=== PATIENT | female | born 1960 | race Caucasian/White ===

== ENCOUNTER 2018-03-31 14:26 | Outpatient (CLI) | payer OTHER | END 2018-03-31 14:27 | disposition home or self-care (01) | LOC: BICMAMMO 14:26 | PROVIDERS: ATTEND Nurse Practitioner Family | DX: Z12.31 Encounter for screening mammogram for malignant neoplasm of breast (principal) | CPT/HCPCS: 77063; 77067 ==

== ENCOUNTER 2019-01-07 10:28 | Outpatient (CLI) | payer OTHER ==
--- NOTE | 2019-01-07 13:17 | MRI ---
MRI CERVICAL SPINE WITHOUT CONTRAST: Date: 01/07/19 INDICATION: Cervical radicular pain for last 5 years. COMPARISON: None. FINDINGS: Visualized posterior fossa and craniocervical junction appears within normal limits. The prevertebral soft tissues are normal appearing. There is reversal of normal cervical lordosis. There is very slight anterior translation of C4 on C5, which is likely degenerative. At C2-3, there is mild facet joint degenerative change, but no appreciable central canal or neural fo raminal narrowing. At C3-4, there is mild facet joint degenerative change bilaterally, but no appreciable central canal or neural foraminal narrowing. There is a small broad based disc bulge at this level. At C4-5, there is a broad based bulge with moderate to severe left and mild right facet joint degener ative change. Constellation of findings induces mild left neural foraminal narrowing and mild central canal narrowing without definite cord flattening. At C5-6, there is a broad based bulge with uncovertebral hypertrophy and facet joint degenerative ismael nge inducing moderate to severe left and moderate right neural foraminal narrowing and moderate centr al canal narrowing. At C6-7, there is a broad based bulge causing mild central canal narrowing with mild bilateral neural foraminal narrowing. At C7-T1, there is no appreciable central canal or neural foraminal narrowing. IMPRESSION: 1. Central canal narrowing at C5-6 with moderate to severe left and moderate right neural foraminal narrowing. 2. Mild central canal narrowing at C4-5 and C6-7 due to a broad based bulge. 3. There is mild left neural foraminal narrowing at C4-5. Mild bilateral neural foraminal narrowing at C6-7 due to uncovertebral hypertrophy and broad based bulge. POS: CET
== END 2019-01-07 10:29 | disposition home or self-care (01) ==
LOC: BICMRI 10:28
PROVIDERS: ATTEND Family Medicine
DX: M50.121 Cervical disc disorder at C4-C5 level with radiculopathy (principal); M48.02 Spinal stenosis, cervical region
CPT/HCPCS: 72141

== ENCOUNTER 2023-12-19 10:49 | Outpatient (CLI) | payer OTHER | END 2023-12-19 10:50 | disposition home or self-care (01) | LOC: BICULT 10:49 | PROVIDERS: ATTEND Nurse Practitioner Family | DX: N63.42 Unspecified lump in left breast, subareolar (principal) ==

== ENCOUNTER 2024-07-22 07:24 | Emergency (ER) | payer SELFPAY ==
[2024-07-22] MEDS ORDERED: Dexamethasone 20 MG/5 ML VIAL ONE (07:45)
[2024-07-22] MEDS ORDERED: Ketorolac Tromethamine 30 MG (1 mL) VIAL ONE (07:45)
== END 2024-07-22 08:43 | disposition home or self-care (01) ==
LOC: ERS 07:24
DX: M79.602 Pain in left arm (principal); E03.9 Hypothyroidism, unspecified; F17.210 Nicotine dependence, cigarettes, uncomplicated; Z79.890 Hormone replacement therapy
CPT/HCPCS: 71045; 93005; 96374; 96375; J1100; J1885

== ENCOUNTER 2025-05-26 15:41 | Emergency (ER) | payer OTHER ==
[2025-05-26 16:32] LABS: #Basophils 0.07 10x3/uL (0.0-0.2); #Eosinophils 0.10 10x3/uL (0.0-0.7); #Monocytes 0.53 10x3/uL (0.11-0.59); #Neutrophils 5.34 10x3/uL (1.40-6.50); %Basophils 0.8 % (0.0-1.0); %Eosinophils 1.2 % (0.0-10.0); %Lymphocytes 30.1 % (21.0-51.0); %Monocytes 6.1 % (0.0-10.0); %Neutrophils 61.5 % (42.0-75.0); Hematocrit 38.0 % (36.0-47.0); Hemoglobin 12.8 g/dL (12.0-16.0); Mean Corpuscular Hemoglobin 32.7 pg (27.0-31.0); Mean Corpuscular Volume 97.2 fL (78.0-98.0); Platelet Count 246 10x3/uL (130-400); Red Blood Cell (RBC) Count 3.91 mill/uL (4.20-5.40); White Blood Cell (WBC) Count 8.69 10x3/uL (4.8-10.8)
[2025-05-26 16:48] LABS: ALT (SGPT) 14 U/L (Less than 34); AST (SGOT) 23 U/L (11-34); Albumin 4.2 g/dL (3.1-4.5); Alkaline Phosphatase 106 U/L (40-110); Anion Gap 10 mmol/L (10-20); BUN (Urea Nitrogen) 16 mg/dL (9.8-20.1); Bilirubin, Total 0.3 mg/dL (0.3-1.2); Calc. Creatinine Clearance 0 mL/min (70-130); Calcium 10.1 mg/dL (7.8-10.44); Carbon Dioxide 22 mmol/L (23-31); Chloride 111 mmol/L (98-107); Globulin 2.7 g/dL (2.4-3.5); Glucose 98 mg/dL (80-115); Potassium 3.9 mmol/L (3.5-5.1); Sodium 139 mmol/L (136-145)
[2025-05-26] MEDS ORDERED: Ketorolac Tromethamine 30 MG (1 mL) VIAL ONE (18:19)
== END 2025-05-26 18:52 | disposition home or self-care (01) ==
LOC: ERS 15:41
DX: R06.02 Shortness of breath (principal); R42 Dizziness and giddiness; F17.210 Nicotine dependence, cigarettes, uncomplicated
CPT/HCPCS: 71045; 80053; 84443; 84484; 85025; 93005; J1885

== ENCOUNTER 2025-05-28 11:48 | Outpatient (CLI) | payer OTHER | END 2025-05-28 11:49 | disposition home or self-care (01) | LOC: BICRAD 11:48 | PROVIDERS: ATTEND Nurse Practitioner Family | DX: L03.032 Cellulitis of left toe (principal); S92.422A Displaced fracture of distal phalanx of left great toe, initial encounter for closed fracture ==